=== PATIENT | female | born 1950 | race Caucasian/White ===

== ENCOUNTER 2018-04-18 11:13 | Inpatient (IN) | payer OTHER ==
[~2018-04-18] VITALS: Ht 154.9 cm; Wt 56.7 kg
[~2018-04-18 11:13] MED LIST: ASPI81EC98 PO; CLOP75TA55 PO; LIP80 PO; NITR0.4S14 SL; VAS5 PO
--- NOTE | 2018-04-18 11:13 | NUR ---
PT BIBA ALS TO BED 6
--- NOTE | 2018-04-18 11:15 | NUR ---
BIB EMS PATIENT PRESENTS TO ED WITH CHEST PAIN X 1 DAY. PT STATES PAIN 10/10 WRAPING AROUND TO BACK. DENIES N/V/D; SKIN IS PINK/WARM/DRY; AAOX4. LUNGS CLEAR BL; HR EVEN AND REGULAR; PT DENIES ANY FEVER, SOB, OR COUGH AT THIS TIME; PATIENT STATES PAIN OF 10/10 AT THIS TIME; VSS; PATIENT POSITIONED FOR COMFORT; HOB ELEVATED; BEDRAILS UP X2; BED DOWN. ER MD MADE AWARE OF PT STATUS. EMS STATED 3 NITRO WITHOUT RELIEF. PATIENTS STATES SHE TOOK TWO ASPIRIN OF UNKNOWN DOSE WITHOUT RELIEF.
--- NOTE | 2018-04-18 11:15 | NUR ---
Note undone in EDM - 04/18/18 at 1142 by AYLIN PATIENT PRESENTS TO ED WITH CHEST PAIN . PT STATES APIN 10/10 WRAPING AROUND TO BACK. DENIES N/V/D; SKIN IS PINK/WARM/DRY; AAOX4. LUNGS CLEAR BL; HR EVEN AND REGULAR; PT DENIES ANY FEVER, SOB, OR COUGH AT THIS TIME; PATIENT STATES PAIN OF 10/10 AT THIS TIME; VSS; PATIENT POSITIONED FOR COMFORT; HOB ELEVATED; BEDRAILS UP X2; BED DOWN. ER MD MADE AWARE OF PT STATUS. EMS STATED 3 NITRO WITHOUT RELIEF. PATIENTS STATES SHE TOOK TWO ASPIRIN OF UNKNOWN DOSE WITHOUT RELIEF.
[2018-04-18 11:16] VITALS: BP 134/106
[2018-04-18] MEDS ORDERED: MORPHINE SULFATE 4 MG/ML SYR IVP ONE ×2 (11:25→12:05)
--- NOTE | 2018-04-18 11:32 | NUR ---
[employer] SUPERVISOR AT BEDSIDE
--- NOTE | 2018-04-18 11:38 | NUR ---
XRAY AT BEDSIDE
[2018-04-18 11:42] LABS: BASOPHILS % (AUTO) 0.5 % (0.0-2.0); EOSINOPHILS # (AUTO) 0.1 K/uL (0-0.4); EOSINOPHILS % (AUTO) 1.2 % (0.0-4.0); HEMATOCRIT 40.1 % (36-48); HEMOGLOBIN 13.2 g/dL (12.0-16.0); LYMPHOCYTES # (AUTO) 1.2 K/uL (2.5-16.5); LYMPHOCYTES % (AUTO) 11.4 % (20.5-51.1); MEAN CORPUSCULAR HEMOGLOBIN 29 pg (27-31); MEAN CORPUSCULAR HGB CONC 33 g/dL (33-37); MEAN CORPUSCULAR VOLUME 88.8 fL (80-94); MONOCYTES # (AUTO) 0.3 K/uL (0.8-1.0); MONOCYTES % (AUTO) 3.1 % (1.7-9.3); NEUTROPHILS # (AUTO) 8.9 K/uL (1.8-7.7); NEUTROPHILS % (AUTO) 83.8 % (42.2-75.2); PLATELET COUNT (AUTO) 293 K/uL (140-450); RED BLOOD CELL COUNT(AUTO) 4.51 MIL/uL (4.20-5.40); RED CELL DISTRIBUTION WIDTH 14.4 % (11.6-13.7); WHITE BLOOD COUNT (AUTO) 10.6 K/uL (4.8-10.8)
[2018-04-18 11:53] LABS: ANION GAP 12.8 (8-16); CARBON DIOXIDE 23.7 mmol/L (21-32); CREATININE 0.7 mg/dL (0.6-1.3); POTASSIUM 3.5 mmol/L (3.5-5.1)
[2018-04-18 11:58] LABS: ALBUMIN 3.5 g/dL (3.4-5.0); TOTAL BILIRUBIN 0.3 mg/dL (0.0-1.0)
[2018-04-18 11:59] LABS: PROTHROMBIN TIME 9.8 secs (10.8-13.4)
--- NOTE | 2018-04-18 11:59 | NUR ---
FAMILY AT BEDSIDE
--- NOTE | 2018-04-18 12:13 | NUR ---
DR KWAN EVALUATING AT BEDSIDE
--- NOTE | 2018-04-18 12:13 | NUR ---
Patient being evaluated by DR KWAN at bedside.
[2018-04-18] MEDS ORDERED: fentaNYL 0.05 MG/ML VIAL IVP ONE (12:20)
[2018-04-18] MEDS ORDERED: DICYCLOMINE HCL LIQUID 20 MG, ALUMINUM HYD/MAG/SIMETHICONE 30 ML, LIDOCAINE VISCOUS 2% ... PO ONE ×3 (12:30)
[2018-04-18] MEDS ORDERED: DOCUSATE SODIUM 100 MG GELCAP PO PRN (12:45)
[2018-04-18] MEDS ORDERED: MORPHINE SULFATE 2 MG/ML SYR IVP PRN (12:45)
--- NOTE | 2018-04-18 13:25 | NUR ---
Patient will be admitted to care of DR BARNHART . Admited to TELE. Will go to room 119 A. Belongings list completed. Report to LYN WELSH.
[2018-04-18] MEDS ORDERED: KETOROLAC 30 MG/ML VIAL IVP SCH (13:30)
[2018-04-18 13:40] VITALS: BP 196/93
--- NOTE | 2018-04-18 13:40 | NUR ---
PT ARRIVED FROM ER IN [facility], REPORT RECEIVED FROM [employer], PT AMBULATES WITH STEADY GAIT, RESP EVEN UNLABORED, C/O LOWER BACK PAIN THAT RADIATES TO FRONT AND SIDES, ICE PACK PROVIDED PER PT REQUEST, PT ORIENTED TO ROOM AND FLOOR, PLAN OF CARE REVIEWED, CALL BOYER WITHIN REACH SIDE RAILS UP, BED LOCKED IN LOW POSITION, SON MELISSA AND DAUGHTER IN [place] AT BEDSIDE, WILL CONTINUE TO MONTIOR Addendum: 04/18/18 at 1757 by Geno Montemayor RN [id number], PT PLACED ON CARDIAC MONTIOR, PT DENIES CHEST PAIN OR SOB AT THIS TIME.
[2018-04-18 14:00] VITALS: BP 173/93
[2018-04-18 14:10] LABS: CHOL/HDL RATIO 4.1 (1-4.5); FREE T4 (FREE THYROXINE) 0.99 ng/dL (0.76-1.46); MAGNESIUM 1.6 mg/dL (1.8-2.4); PHOSPHORUS 1.7 mg/dL (2.5-4.9); THYROID STIMULATING HORMONE 3.9 uIU/mL (0.34-3.74)
[2018-04-18] MEDS: NACL 0.9% 1,000 ML IV SCH ×2 (15:10→22:56)
--- NOTE | 2018-04-18 15:10 | NUR ---
PT STATES PAIN SUBSIDED AFTER TORADOL, PT SMILING AND LAUGHING WITH GRANDSON AT BEDSIDE, PT AMBUALTES WITH STEADY GAIT TO BATHROOM, STATES SHE WAS UNABLE TO COLLECT URINE IN THE CUP, PT AWARE OF NEED FOR URINE SAMPLE.
[2018-04-18 16:00] VITALS: BP 186/89
[2018-04-18] MEDS ORDERED: MAGNESIUM OXIDE 400 MG TAB PO SCH (16:10)
[2018-04-18] MEDS ORDERED: CALCIUM ACETATE 667 MG TAB PO SCH (16:10)
--- NOTE | 2018-04-18 16:20 | NUR ---
PT STATES PAIN HAS SUBSIDED, BP REMAINS ELEVATED, DR RED NOTIFIED
[2018-04-18] MEDS ORDERED: LISINOPRIL 20 MG TAB PO SCH (16:30)
[2018-04-18] MEDS: METOPROLOL 5 MG/5 ML VIAL IV SCH ×2 (16:30→17:08)
[2018-04-18] MEDS ORDERED: ENALAPRILAT 2.5 MG/2 ML VIAL IVP SCH (17:30)
--- NOTE | 2018-04-18 17:52 | NUR ---
BP REMAINS HIGH 176/98, HR 45-59, METOPROLOL HELD, VASOTEC GIVEN PER ORDER, WILL CONTINUE TO MOITOR
--- NOTE | 2018-04-18 18:28 | NUR ---
PT TO CT IN WHEELCHAIR
--- NOTE | 2018-04-18 19:31 | NUR ---
RECEIVED BEDSIDE REPORT FROM DAY SHIFT RN LYN, PT IN BED PT C/O OF FEELING NAUSEOUS OFFERED BLUE BAG FOR PT, WILL MEDICATE ACCORDING TO MD ORDER. IV IN RIGHT AC INFUSING NS AT 100 ML/HR, PT STATES "IV BOTHERS ME WHEN I BEND MY ARM" EDUCATION PROVIDED, WILL CONTINUE TO MONITOR. ON RA, V/S WILL BE TAKEN. EDUCATION PROVIDED ON URINE SAMPLE NEEDED FOR UA. CALL LIGHT WITHIN REACH WILL CONTINUE TO MONITOR.
--- NOTE | 2018-04-18 19:31 | NUR ---
REPORT GIVEN TO CLOTH BOOKER NURSE, PT IN STABLE CONDITION
[2018-04-18] MEDS: ONDANSETRON 4 MG/2 ML VIAL IM/IVP PRN (19:51)
--- NOTE | 2018-04-18 19:57 | NUR ---
PT C/O FEELING NAUSEAS. WILL MEDICATE ACCORDING TO MD ORDER.
[2018-04-18 20:00] VITALS: BP 151/54
--- NOTE | 2018-04-18 22:28 | NUR ---
PT REQUESTED IF SHE CAN EAT SOMETHING, ASKED DR CARRERA IF PT CAN EAT. ORDERS FOR PT TO EAT BUT CONTINUE TO BE NPO AFTER MIDNIGHT. OFFERED PT SANDWICH, CRACKERS, AND MILK.
--- NOTE | 2018-04-18 22:56 | NUR ---
PT C/O PAIN WILL MEDICATE ACCORDING TO MD ORDER.
--- NOTE | 2018-04-18 23:00 | NUR ---
PT CONTINUES TO FEEL NAUSEOUS, WILL MEDICATE ACCORDING TO MD ORDER. EMESIS OUTPUT 300 ML, GREEN/YELLOW FLUID. WILL CONTINUE TO MONITOR.
[2018-04-18] MEDS: KETOROLAC 30 MG/ML VIAL IVP PRN (23:20)
--- NOTE | 2018-04-18 23:29 | NUR ---
PT C/O PAIN 04/06, MEDICATED ACCORDING TO MD ORDER.
[2018-04-19] VITALS: BP 148/78
--- NOTE | 2018-04-19 00:27 | NUR ---
PT SLEEPING IN BED NO SIGNS OF DISTRESS, WILL CONTINUE TO MONITOR.
--- NOTE | 2018-04-19 02:39 | NUR ---
PT SLEEPING IN BED NO SIGNS OF DISTRESS, WILL CONTINUE TO MONITOR.
[2018-04-19 04:00] VITALS: BP 124/74
--- NOTE | 2018-04-19 04:20 | NUR ---
D/C IV IN RIGHT AC D/Y HURTING PT, INSERTED IV IN RIGHT ARM 22 G.
--- NOTE | 2018-04-19 05:15 | NUR ---
UA SAMPLE COLLECTED AND SENT TO LAB
[2018-04-19 05:58] LABS: BASOPHILS # (AUTO) 0.1 K/uL (0.00-0.22); BASOPHILS % (AUTO) 0.5 % (0.0-2.0); EOSINOPHILS # (AUTO) 0.2 K/uL (0-0.4); EOSINOPHILS % (AUTO) 1.5 % (0.0-4.0); HEMATOCRIT 44.4 % (36-48); HEMOGLOBIN 14.6 g/dL (12.0-16.0); LYMPHOCYTES # (AUTO) 1.5 K/uL (2.5-16.5); LYMPHOCYTES % (AUTO) 11.9 % (20.5-51.1); MEAN CORPUSCULAR HEMOGLOBIN 30 pg (27-31); MEAN CORPUSCULAR HGB CONC 33 g/dL (33-37); MEAN CORPUSCULAR VOLUME 89.8 fL (80-94); MONOCYTES % (AUTO) 8.4 % (1.7-9.3); NEUTROPHILS # (AUTO) 9.6 K/uL (1.8-7.7); NEUTROPHILS % (AUTO) 77.7 % (42.2-75.2); PLATELET COUNT (AUTO) 335 K/uL (140-450); RED BLOOD CELL COUNT(AUTO) 4.94 MIL/uL (4.20-5.40); WHITE BLOOD COUNT (AUTO) 12.4 K/uL (4.8-10.8)
[2018-04-19 06:07] LABS: APPEARANCE,URINE CLOUDY (CLEAR); BILIRUBIN,URINE NEGATIVE (NEGATIVE); BLOOD, URINE 1+ (NEGATIVE); COLOR,URINE YELLOW (YELLOW); LEUKOCYTE ESTERASE ,URINE NEGATIVE (NEGATIVE); NITRITE, URINE NEGATIVE (NEGATIVE); PH,URINE 7.5 (5.0-9.0); UGLUCOSE NEGATIVE (NEGATIVE)
[2018-04-19 06:16] LABS: T4 (THYROXINE) 7.3 ug/dL (4.5-12.0)
[2018-04-19 06:19] LABS: BARBITURATE, URINE NEG. ng/ml (NEG <=200); BENZODIAZEPINE, URINE NEG. ng/mL (NEG <=200); CANNABINOID, URINE POS. ng/mL (NEG <=50); COCAINE, URINE NEG. ng/mL (NEG <=300); OPIATE, URINE NEG. ng/mL (NEG <=2000); PHENCYCLIDINE SCREEN,URINE NEG. ng/mL (NEG <=25)
[2018-04-19 06:19] LABS: PHOSPHORUS 3.8 mg/dL (2.5-4.9)
[2018-04-19 06:22] LABS: ANION GAP 12.1 (8-16); CREATININE 0.8 mg/dL (0.6-1.3); POTASSIUM 4.1 mmol/L (3.5-5.1)
--- NOTE | 2018-04-19 07:15 | NUR ---
ENDORSED PT TO DAY SHIFT NURSE, PT STABLE
--- NOTE | 2018-04-19 07:15 | NUR ---
RECEIVED REPORT FROM DIRECTOR GLOBAL INTELLIGENCE NURSE. PT ASLEEP IN BED, RESPIRATIONS EVEN & UNLABORED, NO SIGNS OF DISTRESS. CALL LIGHT WITHIN REACH. WILL CONTINUE TO MONITOR.
[2018-04-19 07:34] LABS: RBC,URINE 3-10 (FEW) /HPF (0-5); WBC,URINE 0-5 (RARE) /HPF (0-5)
[2018-04-19 07:40] LABS: CHOL/HDL RATIO 3.9 (1-4.5)
[2018-04-19 08:00] VITALS: BP 137/75
--- NOTE | 2018-04-19 08:32 | NUR ---
PATIENT HAS BEEN SCREENED AND CATEGORIZED MODERATE NUTRITION RISK. PATIENT WILL BE SEEN WITHIN 3-5 DAYS OF ADMISSION. 04/21/18 04/23/[address]
[2018-04-19] MEDS: NACL 0.9% 1,000 ML IV SCH ×2 (08:45→17:22)
[2018-04-19] MEDS ORDERED: LISINOPRIL 20 MG TAB PO SCH (09:00)
--- NOTE | 2018-04-19 11:20 | NUR ---
FAMILY & DR. RED AT BEDSIDE DISCUSSING PT TEST RESULTS & PLAN OF CARE. PT IN BED, ALERT, VERBALLY RESPONSIVE, DENIES PAIN AT THIS TIME. FALL PRECAUTIONS IN PLACE.
[2018-04-19] MEDS ORDERED: ATORVASTATIN 20 MG TAB PO SCH (11:21)
[2018-04-19 12:00] VITALS: BP 135/76
[2018-04-19] MEDS: PIPER/TAZO 3.375GM/D5W PREMIX 50 ML IV SCH ×2 (12:28→21:11)
[2018-04-19] MEDS: ONDANSETRON 4 MG/2 ML VIAL IM/IVP PRN (15:02)
[2018-04-19] MEDS: KETOROLAC 30 MG/ML VIAL IVP PRN (15:09)
[2018-04-19 16:00] VITALS: BP 121/79
--- NOTE | 2018-04-19 17:22 | NUR ---
PT SLEEPING QUIELTY IN NAD, RESP EVEN UNLABORED, SKIN WARM DRY COLOR WNL, PT AROUSES EASILY, DENIES PAIN OR DISCOMFORT, AZITHROMYCIN IVPB STARTED PER ORDER, IV SITE WNL, WILL CONTINUE TO MONITOR
[2018-04-19] MEDS ORDERED: AZITHROMYCIN 500 MG in DEXTROSE 5% 250 ML IV SCH (18:00)
--- NOTE | 2018-04-19 19:15 | NUR ---
REPORT GIVEN TO CDL SERVICE TECHNICIAN NURSE FOR CONTINUITY OF CARE. PT ASLEEP IN BED, RESPIRATIONS EVEN & UNLABORED.
--- NOTE | 2018-04-19 19:15 | NUR ---
RECEIVED BEDSIDE REPORT FORM DAY SHIFT NURSE LYN, PT RESTING IN BED, NO SIGNS OF ACUTE DISTRESS. IV IN RIGHT AC, 20 G, INFUSING NS AT 100 ML. IV IN RIGHT FA, SL, DRESSING INTACT. PT ON RA, V/S TAKEN, ALL WITHIN PTS BASELINE. UPDATED BOARD, CALL LIGHT WITHIN REACH, WILL, CONTINUE TO MONITOR.
[2018-04-19 20:00] VITALS: BP 141/90
--- NOTE | 2018-04-19 21:00 | NUR ---
PT C/O PAIN AT THE IV IN RIGHT AC, D/C IV, CATH INTACT. PRESSURE APPLIED. INFUSING NS AT 100 ML/HR IN RIGHT FA IV, 22 G. WILL CONTINUE TO MONITOR.
[2018-04-19] MEDS: ACETAMINOPHEN 325 MG TAB PO PRN (21:11)
--- NOTE | 2018-04-19 21:11 | NUR ---
PT C/O MILD HEADACHE, MEDICATED WITH TYLENOL ACCORDING TO MD ORDER.
[2018-04-20] VITALS: BP 145/92
--- NOTE | 2018-04-20 01:00 | NUR ---
PT SLEEPING IN BED NO SIGNS OF DISTRESS, WILL CONTINUE TO MONITOR. CALL LIGHT WITHIN REACH.
[2018-04-20 04:00] VITALS: BP 121/62
--- NOTE | 2018-04-20 04:00 | NUR ---
PT ASLEEP IN BED, WILL CONTINUE TO MONITOR. CALL LIGHT WITHIN REACH.
[2018-04-20] MEDS: NACL 0.9% 1,000 ML IV SCH (05:11)
[2018-04-20] MEDS: PIPER/TAZO 3.375GM/D5W PREMIX 50 ML IV SCH ×3 (05:11→21:01)
[2018-04-20 06:17] LABS: BASOPHILS % (AUTO) 0.4 % (0.0-2.0); EOSINOPHILS # (AUTO) 0.3 K/uL (0-0.4); EOSINOPHILS % (AUTO) 2.6 % (0.0-4.0); HEMATOCRIT 40.4 % (36-48); HEMOGLOBIN 13.4 g/dL (12.0-16.0); LYMPHOCYTES # (AUTO) 1.8 K/uL (2.5-16.5); LYMPHOCYTES % (AUTO) 16.6 % (20.5-51.1); MEAN CORPUSCULAR HEMOGLOBIN 30 pg (27-31); MEAN CORPUSCULAR HGB CONC 33 g/dL (33-37); MEAN CORPUSCULAR VOLUME 90.7 fL (80-94); MONOCYTES # (AUTO) 1.1 K/uL (0.8-1.0); MONOCYTES % (AUTO) 10.7 % (1.7-9.3); NEUTROPHILS # (AUTO) 7.4 K/uL (1.8-7.7); NEUTROPHILS % (AUTO) 69.7 % (42.2-75.2); PLATELET COUNT (AUTO) 286 K/uL (140-450); RED BLOOD CELL COUNT(AUTO) 4.46 MIL/uL (4.20-5.40); RED CELL DISTRIBUTION WIDTH 14.4 % (11.6-13.7); WHITE BLOOD COUNT (AUTO) 10.6 K/uL (4.8-10.8)
[2018-04-20 07:01] LABS: ANION GAP 12.8 (8-16); CARBON DIOXIDE 26.7 mmol/L (21-32); CREATININE 0.8 mg/dL (0.6-1.3); POTASSIUM 3.5 mmol/L (3.5-5.1)
[2018-04-20 07:09] LABS: MAGNESIUM 1.9 mg/dL (1.8-2.4); PHOSPHORUS 3.3 mg/dL (2.5-4.9)
--- NOTE | 2018-04-20 07:21 | NUR ---
ENDORSED PT TO DAY SHIFT NURSE PT STABLE.
--- NOTE | 2018-04-20 07:22 | NUR ---
RECEIVED REPORT FROM EMERGENCY PHYSICIAN NURSE. PT SLEEPING COMFORTABLY IN BED, AROUSABLE BY VOICE. ABLE TO VERBALIZE NEEDS. NO SIGNS OF DISTRESS, RESPIRATIONS EVEN & UNLABORED. WILL CONTINUE TO MONITOR.
[2018-04-20 08:00] VITALS: BP 125/54
[2018-04-20] MEDS: LACTOBACILLUS RHAMNOSUS GG 1 EACH CAP PO SCH (08:59)
[2018-04-20] MEDS: KETOROLAC 30 MG/ML VIAL IVP PRN (08:59)
[2018-04-20] MEDS: ATORVASTATIN 20 MG TAB PO SCH (08:59)
--- NOTE | 2018-04-20 09:00 | NUR ---
PT SITTING UP IN BED, ALERT, VERBALLY RESPONSIVE. DENIES ANY PAIN OR DISCOMFORT AT THIS TIME. CALL LIGHT WITHIN REACH. FALL PRECAUTIONS IN PLACE. WILL CONTINUE TO MONITOR.
[2018-04-20] MEDS ORDERED: METOPROLOL SUCCINATE 50 MG TABER PO SCH (09:04)
[2018-04-20 12:00] VITALS: BP 102/48
--- NOTE | 2018-04-20 12:15 | NUR ---
PT SITTING UP IN BED, EATING LUNCH. NO SIGNS OF DISTRESS. DENIES ANY PAIN OR DISCOMFORT. CALL LIGHT WITHIN REACH. WILL CONTINUE TO MONITOR.
[2018-04-20] MEDS: ACETAMINOPHEN 325 MG TAB PO PRN (14:10)
--- NOTE | 2018-04-20 14:55 | NUR ---
ASSISTED PT TO THE RESTROOM WITH STEADY GAIT. VOIDED X1. ASSISTED BACK TO BED. CALL LIGHT PLACED WITHIN REACH AND ENCOURAGED TO USE CALL BUTTON FOR ASSISTANCE NEEDED. VERBALIZED UNDERSTANDING. WILL CONTINUE TO MONITOR.
--- NOTE | 2018-04-20 16:00 | NUR ---
PT SLEEPING IN BED COMFORTABLY, AROUSABLE BY VOICE. PT DENIES ANY PAIN OR DISCOMFORT. NO SIGNS OF DISTRESS. WILL CONTINUE TO MONITOR.
--- NOTE | 2018-04-20 19:17 | NUR ---
REPORT GIVEN TO ART THERAPIST NURSE BOB DAVIDSON IN STABLE CONDITION.
--- NOTE | 2018-04-20 19:50 | NUR ---
SEEN PT AWAKE, ALERT AND ORIENTED W/ FAMILY AT BEDSIDE. INITIAL ASSESSMENT DONE. VITAL SIGNS CHECKED. PT DENIES ANY NAUSEA& VOMITING AT THIS TIME. PT DENIES ANY CHEST PAIN BUT COMPLAINING OF BACK PAIN. SAFETY ENSURED. PT SAID HER LAST BM WAS ON ADMISSION. WILL NOTIFY .
[2018-04-20 20:00] VITALS: BP 145/80
--- NOTE | 2018-04-20 21:00 | NUR ---
MEDICATIONS GIVEN W/ TEACHINGS. PT VERBALIZED UNDERSTANDING.
[2018-04-20] MEDS: HYDROcodone/APAP 7.5/325 MG 1 TAB PO PRN (21:01)
--- NOTE | 2018-04-21 01:45 | NUR ---
PT CALLED ASKING FOR BLANKET. WARM BLANKET GIVEN PER REQUEST. PT DENIES ANY DISCOMFORT. SAFETY ENSURED.
[2018-04-21 05:00] VITALS: BP 126/63
--- NOTE | 2018-04-21 05:00 | NUR ---
SEEN PT ASLEEP BUT EASILY AROUSABLE. VITAL SIGNS CHECKED. IV ATB GIVEN ORDERED. [place]Y VERBALIZED UNDERSTANDING. PT COMPLAINING OF PAIN. WILL MEDICATE ORDERED. PT GETTING UP TO THE BATHROOM.
[2018-04-21] MEDS: PIPER/TAZO 3.375GM/D5W PREMIX 50 ML IV SCH ×2 (05:10→12:44)
[2018-04-21] MEDS: HYDROcodone/APAP 7.5/325 MG 1 TAB PO PRN (05:15)
--- NOTE | 2018-04-21 07:15 | NUR ---
RECEIVED PATIENT REPORT AT BEDSIDE. PATIENT ASLEEP BUT AROUSABLE. NO S/S OF DISTRESS NOTED. PATIENT ON ROOM AIR. NO SOB. NO C/O PAIN AT THIS TIME. BED LOWERED WITH CALL LIGHT WITHIN REACH. WILL CONTINUE TO MONITOR
--- NOTE | 2018-04-21 07:15 | NUR ---
PT REPORT GIVEN TO DAYSHIFT NURSE.
[2018-04-21] MEDS: ATORVASTATIN 20 MG TAB PO SCH (08:52)
[2018-04-21] MEDS: LACTOBACILLUS RHAMNOSUS GG 1 EACH CAP PO SCH (08:52)
[2018-04-21] MEDS: ACETAMINOPHEN 325 MG TAB PO PRN (08:52)
[2018-04-21] MEDS ORDERED: METOPROLOL SUCCINATE 50 MG TABER PO SCH (09:00)
[2018-04-21] MEDS ORDERED: METO25TE2 PO (09:29)
[2018-04-21] MEDS ORDERED: AZIT250T3 PO (09:29)
[2018-04-21] MEDS ORDERED: LISI-420 PO (09:29)
[2018-04-21] MEDS ORDERED: ATOR20TA PO (09:29)
[2018-04-21] MEDS: NACL 0.9% 1,000 ML IV SCH (13:09)
--- NOTE | 2018-04-21 13:16 | NUR ---
PATIENT GIVEN DISCHARGE INSTRUCTIONS AND DISCHARGE PRESCRIPTIONS. PATIENT VERBALIZED UNDERSTANDING. PATIENT WAITING FOR FAMILY MEMBERS TO PICK HER UP
--- NOTE | 2018-04-21 15:30 | NUR ---
PATIENT DISCHARGED TO HOME. IV LINE DISCONTINUED. PATIENT LEFT WITH ALL HER BELONGINGS AND DISCHARGE PAPERS. PATIENT LEFT IN STABLE CONDITION
== END 2018-04-21 15:30 | disposition home or self-care (01) | DRG 897 ==
LOC: MED 11:13 → MTU 12:49
PROVIDERS: ADMIT General Practice; ATTEND General Practice
DX: F12.988 Cannabis use, unspecified with other cannabis-induced disorder (principal); I16.1 Hypertensive emergency; K92.9 Disease of digestive system, unspecified; R91.8 Other nonspecific abnormal finding of lung field; F15.90 Other stimulant use, unspecified, uncomplicated; E83.51 Hypocalcemia; I72.2 Aneurysm of renal artery; D72.829 Elevated white blood cell count, unspecified; E78.5 Hyperlipidemia, unspecified; I25.10 Atherosclerotic heart disease of native coronary artery without angina pectoris; Z85.42 Personal history of malignant neoplasm of other parts of uterus; Z90.710 Acquired absence of both cervix and uterus; Z90.49 Acquired absence of other specified parts of digestive tract; Z60.2 Problems related to living alone
CPT/HCPCS: 36415; 71045; 76705; 80048; 80053; 80305; 81001; 82150; 83036; 83690; 83735; 83880; 84100; 84436; 84439; 84443; 84479; 84484; 85025; 85610; 85730; 87081; 93005; 96374; 96375; 96376; 99285; J0456; J1644; J1885; J2270; J2405; J2543; J3010; J3490; J7030; J7060; Q0092; Q9967

== ENCOUNTER 2023-05-27 17:54 | Emergency (ER) | payer OTHER ==
[~2023-05-27] VITALS: Ht 160 cm; Wt 49.9 kg
[~2023-05-27 17:54] MED LIST changes: +ATOR20TA PO; +AZIT250T3 PO; -CLOP75TA55 PO; -LIP80 PO; +LISI-487 PO; +METO25TE2 PO; -NITR0.4S14 SL; +NITR12SP3 SL; -VAS5 PO
[2023-05-27 17:58] VITALS: BP 156/87; PULSE 94; RESP 15; TEMP 97.6; O2SAT 96
[2023-05-27] MEDS ORDERED: KETOROLAC 30 MG/ML VIAL IVP ONE (21:25)
[2023-05-27] MEDS ORDERED: NACL 0.9% 1,000 ML IV ONE (21:25)
[2023-05-27 22:08] LABS: BASOPHILS % (AUTO) 0.4 % (0.0-2.0); EOSINOPHILS # (AUTO) 0.1 K/uL (0-0.4); EOSINOPHILS % (AUTO) 1.2 % (0.0-4.0); HEMATOCRIT 44.7 % (36-48); HEMOGLOBIN 14.9 g/dL (12.0-16.0); LYMPHOCYTES # (AUTO) 1.5 K/uL (2.5-16.5); LYMPHOCYTES % (AUTO) 15.2 % (20.5-51.1); MEAN CORPUSCULAR HEMOGLOBIN 31 pg (27-31); MEAN CORPUSCULAR HGB CONC 33 g/dL (33-37); MONOCYTES # (AUTO) 0.3 K/uL (0.8-1.0); MONOCYTES % (AUTO) 3.6 % (1.7-9.3); NEUTROPHILS # (AUTO) 7.6 K/uL (1.8-7.7); NEUTROPHILS % (AUTO) 79.6 % (42.2-75.2); PLATELET COUNT (AUTO) 241 K/uL (140-450); RED BLOOD CELL COUNT(AUTO) 4.81 MIL/uL (4.20-5.40); RED CELL DISTRIBUTION WIDTH 13.6 % (11.6-13.7); WHITE BLOOD COUNT (AUTO) 9.6 K/uL (4.8-10.8)
[2023-05-27] MEDS ORDERED: ACETAMINOPHEN EXTRA STRENGTH 500 MG TAB PO ONE (22:10)
[2023-05-27 22:22] LABS: FLU A ANTIGEN negative (NEGATIVE); FLU B ANTIGEN NEGATIVE (NEGATIVE)
[2023-05-27 22:32] LABS: ALANINE AMINOTRANSFERASE 25 U/L (12-78); ALBUMIN 3.5 g/dL (3.4-5.0); ALKALINE PHOSPHATASE 144 U/L (50-136); ANION GAP 12.8 (8-16); ASPARTATE AMINOTRANSFERASE 19 U/L (15-37); CALCIUM 9.3 mg/dL (8.5-10.1); CARBON DIOXIDE 24.9 mmol/L (21-32); CHLORIDE 106 mmol/L (98-107); CREATININE 0.9 mg/dL (0.6-1.3); GLUCOSE 101 mg/dL (74-106); POTASSIUM 3.7 mmol/L (3.5-5.1); SODIUM SERUM 140 mmol/L (136-145); THYROID STIMULATING HORMONE 1.81 uIU/mL (0.34-3.74); TOTAL BILIRUBIN 0.5 mg/dL (0.0-1.0); TOTAL PROTEIN, SERUM 7.4 g/dL (6.4-8.2); UREA NITROGEN, BLOOD 15 mg/dL (7-18)
[2023-05-27 22:33] LABS: APPEARANCE,URINE CLEAR (CLEAR); BILIRUBIN,URINE NEGATIVE (NEGATIVE); BLOOD, URINE NEGATIVE (NEGATIVE); COLOR,URINE YELLOW (YELLOW); LEUKOCYTE ESTERASE ,URINE NEGATIVE (NEGATIVE); NITRITE, URINE NEGATIVE (NEGATIVE); PH,URINE 7.5 (5.0-9.0); PROTEIN,URINE NEGATIVE (NEGATIVE); UGLUCOSE NEGATIVE (NEGATIVE); UROBILINOGEN,URINE 0.2 EU/dL (0.2 - 1)
[2023-05-27 23:04] LABS: BACTERIA,URINE OCCASSIONAL /HPF (None Seen); RBC,URINE 0-5 /HPF (0-5); WBC,URINE 0-5 /HPF (0-5)
[2023-05-27 23:05] LABS: COARSE GRANULAR CASTS,URINE 0-2 /LPF (None Seen); SQUAMOUS EPITHELIAL CELL,UR 0-3 (FEW) /LPF (0-3 (FEW)); URINE AMORPHOUS PHOSPHATES 1+ /HPF (None Seen)
[2023-05-27] MEDS ORDERED: ACETAMINOPHEN EXTRA STRENGTH 500 MG TAB ONE (23:17)
[2023-05-28 00:24] VITALS: BP 144/73; PULSE 66; RESP 18; TEMP 97.8; O2SAT 95
== END 2023-05-28 01:50 | disposition home or self-care (01) ==
LOC: MED 17:54
DX: R53.1 Weakness (principal); I10 Essential (primary) hypertension; I25.2 Old myocardial infarction; Z79.899 Other long term (current) drug therapy; Z20.822 Contact with and (suspected) exposure to COVID-19
CPT/HCPCS: 36415; 71045; 80053; 81001; 84443; 84484; 85025; 87426; 87804; 93005; 96361; 96374; 99285; J1885; J7030; Q0092